=== PATIENT | female | born 1980 | race Caucasian/White ===

== ENCOUNTER → 2020-12-19 | Outpatient (CLI) | payer BC ==
[~2020-12-19] MED LIST: BP MED; CYCL10 PO; GUAPSEER PO; HYDACE5 PO; LEVSOD75; Macrobid 100 M100 MG PO; NAPR550 PO; NITR100CA PO; PROCODE120 PO; Synthroid/Levo0.2 MG; Verotin-Gr Cap1 EACH PO
== END | disposition home or self-care (01) ==
LOC: LAB SHORT 10:00
DX: R10.32 Left lower quadrant pain (principal)
CPT/HCPCS: 87086

== ENCOUNTER 2021-02-21 10:23 | Day surgery (SDC) | payer BC | END 2021-02-22 00:31 | disposition home or self-care (01) | LOC: RAD 10:23 | DX: M75.31 Calcific tendinitis of right shoulder (principal); S43.431A Superior glenoid labrum lesion of right shoulder, initial encounter; X58.XXXA Exposure to other specified factors, initial encounter; M75.51 Bursitis of right shoulder; M67.813 Other specified disorders of tendon, right shoulder | CPT/HCPCS: 20610; 73222; 77002; A9577; Q9967 ==

== ENCOUNTER 2021-04-16 18:29 | Emergency (ER) | payer BC ==
[~2021-04-16] VITALS: Ht 160 cm; Wt 99.8 kg
[2021-04-16] MEDS ORDERED: LOSARTAN POTASS25 M2 PO (18:44)
[2021-04-16 20:07] LABS: Source, Urine Clean Catch
[2021-04-16 20:10] LABS: Bilirubin, Urine Neg (Neg); Blood, Urine Neg (Neg); Glucose Qualitative, Urine Neg (Neg); Ketones, Urine Neg (Neg); Leukocyte Esterase, Urine Neg (Neg); Nitrite, Urine Neg (Neg); Protein, Urine Neg (Neg); Specific Gravity, Urine 1.015 (1.003-1.022); Urobilinogen, Urine NORM (Normal)
[2021-04-16 20:12] LABS: BASOPHILS ABSOLUTE AUTO 0.03 K/mm3 (0.00-0.23); BASOPHILS PERCENT AUTO 0 % (0-2); EOSINOPHILS ABSOLUTE AUTO 0.03 K/mm3 (0.00-0.68); EOSINOPHILS PERCENT AUTO 0 % (0-6); Hematocrit 37.1 % (33.0-51.0); Hemoglobin 12.1 g/dL (11.5-16.0); IMMATURE GRAN ABSOLUTE AUTO 0.08 K/mm3 (0.00-0.10); IMMATURE GRAN PERCENT AUTO 1 % (0-1); LYMPHOCYTES ABSOLUTE AUTO 1.78 K/mm3 (0.84-5.20); LYMPHOCYTES PERCENT AUTO 16 % (21-46); MONOCYTES PERCENT AUTO 6 % (4-13); Mean Corpuscular HGB 29.7 pg (26.0-34.0); Mean Corpuscular HGB Conc 32.6 g/dL (31.5-36.5); Mean Corpuscular Volume 91 fL (80-100); Mean Platelet Volume 10.4 fL (9.1-12.4); NEUTROPHILS ABSOLUTE AUTO 8.34 K/mm3 (1.96-9.15); NEUTROPHILS PERCENT AUTO 77 % (41-73); Platelet Count 261 K/mm3 (150-400); RDW Standard Deviation 46.5 fL (35.1-46.3); Red Blood Cell Count 4.07 M/mm3 (3.80-5.20); White Blood Cell Count 10.86 K/mm3 (4.00-11.30)
[2021-04-16 20:22] LABS: Appearance, Urine Hazy (Clear); Color, Urine Yellow (P-Yellow)
[2021-04-16 20:23] LABS: Amorphous Mod (0-Heavy); Bacteria Few /hpf; Mucus Mod (0-Heavy); Red Blood Cells, Urine Not Seen /hpf (0-2); Squamous Epithelial Cells Few /hpf (Few); Transitional Epithelial Cells Few /hpf (0-Rare); White Blood Cells, Urine Not Seen /hpf (0-5)
[2021-04-16 20:31] LABS: Alanine Aminotransfer (ALT/SGP 29 U/L (12-78); Albumin, Blood 3.3 g/dL (3.4-5.0); Albumin/Globulin Ratio 0.8 (0.8-1.8); Alk Phos 84 U/L (50-136); Anion Gap 5 mmol/L (6-16); Aspartate Aminotrans (AST/SGOT 20 U/L (12-37); Bilirubin, Total 0.3 mg/dL (0.1-1.0); Blood Urea Nitrogen 19 mg/dL (8-24); Bun/Creatinine Ratio 28.6 (12.0-20.0); CO2, Blood 24 mmol/L (21-32); Calcium, Blood 9.2 mg/dL (8.5-10.1); Chloride, Blood 106 mmol/L (98-108); Creatinine, Blood 0.67 mg/dL (0.40-1.00); Globulin, Blood 4.2 g/dL (2.2-4.0); Glomerular Filtration Rate >60 (60-); Glucose, Blood 103 mg/dL (70-99); Potassium, Blood 3.9 mmol/L (3.5-5.5); Sodium, Blood 135 mmol/L (136-145); Total Protein, Blood 7.5 g/dL (6.4-8.2)
[2021-04-16] MEDS ORDERED: METOPROLOL SUCC25 MG PO (22:05)
[2021-04-16] MEDS ORDERED: FLUOXETINE HCL20 M2 PO (22:06)
[2021-04-16] MEDS ORDERED: SETLAKIN 0.151 EAC2 PO (22:06)
== END 2021-04-17 01:41 | disposition home or self-care (01) ==
LOC: ER 18:29
PROVIDERS: Physician Assistant
DX: R10.13 Epigastric pain (principal); F17.200 Nicotine dependence, unspecified, uncomplicated; E03.9 Hypothyroidism, unspecified; M54.9 Dorsalgia, unspecified; Z79.890 Hormone replacement therapy; Z79.899 Other long term (current) drug therapy
CPT/HCPCS: 36415; 74176; 80053; 81001; 81025; 83690; 85025; 96374; 96375; 99284-25; A9270; J1790; J2405; J7030

== ENCOUNTER 2021-06-10 11:29 | Day surgery (SDC) | payer BC ==
[~2021-06-10] VITALS: Ht 160 cm; Wt 105.5 kg
[~2021-06-10 11:29] MED LIST changes: +FLUOXETINE HCL20 M2 PO; +LOSARTAN POTASS25 M2 PO; +METOPROLOL SUCC25 MG PO; +SETLAKIN 0.151 EAC2 PO
--- NOTE | 2021-06-10 12:24 | NUR ---
06/10/21 1224 Lucrecia Benitez CALL LIGHT WITHIN REACH.
--- NOTE | 2021-06-10 14:58 | NUR ---
06/10/21 Renée Adams TITRATED PT TO 5L/MIN THEN REMOVED OXYGEN AND PTS OXYGEN DROPPED TO 90 PERCENT. PLACED PT BACK ON OXYGEN 10L/MIN. PT'S OXYGEN SATURATION LEVEL INCREASED TO 100%. OXYGEN TITRATED TO 5L/MIN AND PT MAINTAINING OXYGEN ABOVE 97%.
--- NOTE | 2021-06-10 15:49 | NUR ---
06/10/21 1549 Nida Krause ASSUMED CARE OF PATIENT FROM ALEXX PARKS
== END 2021-06-10 15:50 | disposition home or self-care (01) ==
LOC: ORSCSDS 11:29
PROVIDERS: Obstetrics & Gynecology
PROC: 0UB04ZZ Excision of Right Ovary, Percutaneous Endoscopic Approach (ICD-10-PCS; principal; 2021-06-10 13:00)
PROC: 0UB54ZZ Excision of Right Fallopian Tube, Percutaneous Endoscopic Approach (ICD-10-PCS; principal; 2021-06-10 13:00)
DX: N83.201 Unspecified ovarian cyst, right side (principal); F41.8 Other specified anxiety disorders; E03.9 Hypothyroidism, unspecified; I10 Essential (primary) hypertension; K21.9 Gastro-esophageal reflux disease without esophagitis; E66.01 Morbid (severe) obesity due to excess calories; Z68.41 Body mass index [BMI] 40.0-44.9, adult; Z87.891 Personal history of nicotine dependence; Z79.899 Other long term (current) drug therapy
CPT/HCPCS: 88305; A9270; J0171; J1100; J1885; J2250; J2405; J2704; J3010; J7120

== ENCOUNTER 2022-09-30 12:12 | Emergency (ER) | payer BC ==
[~2022-09-30] VITALS: Ht 160 cm; Wt 99.8 kg
[2022-09-30 13:21] LABS: BASOPHILS ABSOLUTE AUTO 0.05 K/mm3 (0.00-0.23); BASOPHILS PERCENT AUTO 1 % (0-2); EOSINOPHILS ABSOLUTE AUTO 0.06 K/mm3 (0.00-0.68); EOSINOPHILS PERCENT AUTO 1 % (0-6); Hemoglobin 13.5 g/dL (11.5-16.0); IMMATURE GRAN ABSOLUTE AUTO 0.06 K/mm3 (0.00-0.10); IMMATURE GRAN PERCENT AUTO 1 % (0-1); LYMPHOCYTES ABSOLUTE AUTO 2.01 K/mm3 (0.84-5.20); LYMPHOCYTES PERCENT AUTO 23 % (21-46); MONOCYTES ABSOLUTE AUTO 0.63 K/mm3 (0.16-1.47); MONOCYTES PERCENT AUTO 7 % (4-13); Mean Corpuscular HGB 30.5 pg (26.0-34.0); Mean Corpuscular HGB Conc 32.9 g/dL (31.5-36.5); Mean Corpuscular Volume 93 fL (80-100); Mean Platelet Volume 9.9 fL (9.1-12.4); NEUTROPHILS ABSOLUTE AUTO 5.98 K/mm3 (1.96-9.15); NEUTROPHILS PERCENT AUTO 68 % (41-73); Platelet Count 334 K/mm3 (150-400); RDW Coefficient Variation 13.7 % (11.7-14.2); RDW Standard Deviation 46.2 fL (35.1-46.3); Red Blood Cell Count 4.43 M/mm3 (3.80-5.20); White Blood Cell Count 8.79 K/mm3 (4.00-11.30)
[2022-09-30 13:24] LABS: Albumin, Blood 3.6 g/dL (3.4-5.0); Albumin/Globulin Ratio 0.8 (0.8-1.8); Bilirubin, Total 0.2 mg/dL (0.1-1.0); Bun/Creatinine Ratio 27.1 (12.0-20.0); Calcium, Blood 10.1 mg/dL (8.5-10.1); Creatinine, Blood 0.85 mg/dL (0.40-1.00); Globulin, Blood 4.3 g/dL (2.2-4.0); Total Protein, Blood 7.9 g/dL (6.4-8.2)
== END 2022-09-30 14:40 | disposition home or self-care (01) ==
LOC: ER 12:12
PROVIDERS: Physician Assistant
DX: I16.0 Hypertensive urgency (principal); I10 Essential (primary) hypertension; Z79.899 Other long term (current) drug therapy; Z79.890 Hormone replacement therapy
CPT/HCPCS: 36415; 80053; 85025; 93005; 93010

== ENCOUNTER 2024-05-30 09:59 | Day surgery (SDC) | payer BC ==
[~2024-05-30] VITALS: Ht 160 cm; Wt 106.8 kg
[2024-05-30] MEDS ORDERED: Labetalol HCL 5 MG/ML 4ML Injection (Single Dose) ONE (11:18)
[2024-05-30] MEDS ORDERED: propofoL 50 ML IV ONE ×2 (11:23→11:52)
[2024-05-30] MEDS ORDERED: Lactated Ringer's 1,000 ML IV ONE (11:30)
[2024-05-30 12:53] VITALS: BP 164/101
== END 2024-05-30 12:46 | disposition home or self-care (01) ==
LOC: ORSCSDS 09:59
PROVIDERS: Internal Medicine Gastroenterology
PROC: 0DBE8ZX Excision of Large Intestine, Via Natural or Artificial Opening Endoscopic, Diagnostic (ICD-10-PCS; principal; 2024-05-30 11:00)
PROC: 0DBN8ZX Excision of Sigmoid Colon, Via Natural or Artificial Opening Endoscopic, Diagnostic (ICD-10-PCS; principal; 2024-05-30 11:00)
DX: R19.7 Diarrhea, unspecified (principal); D12.5 Benign neoplasm of sigmoid colon; D12.7 Benign neoplasm of rectosigmoid junction; I10 Essential (primary) hypertension; E78.5 Hyperlipidemia, unspecified; E11.9 Type 2 diabetes mellitus without complications; E03.9 Hypothyroidism, unspecified; K76.0 Fatty (change of) liver, not elsewhere classified; E66.01 Morbid (severe) obesity due to excess calories; Z68.41 Body mass index [BMI] 40.0-44.9, adult; Z79.84 Long term (current) use of oral hypoglycemic drugs; Z79.899 Other long term (current) drug therapy
CPT/HCPCS: 82947; 88305; J2704; J7120

== ENCOUNTER 2025-09-12 21:54 | Emergency (ER) | payer SELFPAY ==
[~2025-09-12] VITALS: Ht 160 cm; Wt 99.8 kg
[2025-09-12 21:59] VITALS: BP 164/109
== END 2025-09-12 23:27 | disposition home or self-care (01) ==
LOC: ER 21:54
DX: S63.501A Unspecified sprain of right wrist, initial encounter (principal); W10.9XXA Fall (on) (from) unspecified stairs and steps, initial encounter; Z59.89 Other problems related to housing and economic circumstances
CPT/HCPCS: 29125; 73110; 99283-25; A9270